=== PATIENT | female | born 1975 | race Caucasian/White ===

== ENCOUNTER → 2016-06-23 | Outpatient (CLI) | payer BC | LOC: CT 11:30 | DX: R31.9 Hematuria, unspecified (principal); R10.9 Unspecified abdominal pain; Z87.442 Personal history of urinary calculi; N20.0 Calculus of kidney ==

== ENCOUNTER 2021-04-17 17:22 | Emergency (ER) | payer BC ==
[2021-04-17 18:53] LABS: HEMOGLOBIN 14.2 gm/dl (12.3-15.3); RED BLOOD COUNT 4.54 M/UL (4.00-5.10); WHITE BLOOD COUNT 11.6 K/UL (4.5-11.0)
[2021-04-17 19:11] LABS: BUN/CREATININE RATIO 14 (0-10)
[2021-04-18] MEDS ORDERED: MOBIC15 MG PO (00:42)
== END 2021-04-18 00:48 | disposition home or self-care (01) ==
LOC: ER1 17:22
PROVIDERS: Physician Assistant Medical
DX: U09.9 Post COVID-19 condition, unspecified (principal); E11.9 Type 2 diabetes mellitus without complications; I10 Essential (primary) hypertension; Z90.710 Acquired absence of both cervix and uterus; Z88.8 Allergy status to other drugs, medicaments and biological substances
CPT/HCPCS: 71045; 80053; 82550; 82553; 83874; 83880; 84484; 85025; 93005; 99285; Q9967